=== PATIENT | female | born 1985 | race Caucasian/White ===

== ENCOUNTER 2018-06-15 18:15 | Emergency (ER) | payer OTHER ==
[~2018-06-15] VITALS: Ht 170.2 cm; Wt 54.4 kg
[2018-06-15] MEDS ORDERED: FAMC250 PO (21:50)
== END 2018-06-15 22:35 | disposition home or self-care (01) ==
LOC: ER 18:15
DX: L30.9 Dermatitis, unspecified (principal)
CPT/HCPCS: 10160; 36415; 99283-25